=== PATIENT | female | born 1975 | race African-American/Black ===

== ENCOUNTER 2017-12-12 08:21 | Emergency (ER) | payer OTHER ==
[~2017-12-12] VITALS: Ht 160 cm; Wt 133.4 kg
[~2017-12-12 08:21] MED LIST: LABE100T5 PO
[2017-12-12 09:14] LABS: BASO # 0.1 x10^3/uL (0.0-0.2); BASO % 1 % (0-3); EOS # 0.2 x10^3/uL (0.0-0.7); EOS % 3 % (0-3); HEMATOCRIT 36.7 % (36.0-47.0); HEMOGLOBIN 12.2 g/dL (12.0-15.5); LYMPH # 1.9 x10^3/uL (1.0-4.8); LYMPH % 27 % (24-48); MEAN CORPUSCULAR HEMOGLOBIN 27 pg (25-35); MEAN CORPUSCULAR HGB CONC 33 g/dL (31-37); MEAN CORPUSCULAR VOLUME 81 fL (79-100); MONO # 0.4 x10^3/uL (0.0-1.1); MONO % 6 % (0-9); NEUT # 4.6 x10^3uL (1.8-7.7); NEUT % 64 % (31-73); PLATELET COUNT 371 x10^3/uL (140-400); RED BLOOD COUNT 4.53 x10^6/uL (3.50-5.40); WHITE BLOOD COUNT 7.2 x10^3/uL (4.0-11.0)
[2017-12-12] MEDS ORDERED: hydroCHLOROthiazide 12.5 MG CAPSULE PO ONE (09:15)
[2017-12-12] MEDS ORDERED: EPINEPHrine SYRINGE 1 MG/10 ML SYRINGE IM ONE (09:15)
[2017-12-12] MEDS ORDERED: diphenhydrAMINE 50 MG/ML VIAL IVP ONE (09:15)
[2017-12-12] MEDS ORDERED: FAMOTIDINE 20 MG TABLET. PO ONE (09:15)
[2017-12-12] MEDS ORDERED: EPINEPHrine 1 MG/ML VIAL IM ONE (09:15)
[2017-12-12 09:26] LABS: CALCIUM 9.5 mg/dL (8.5-10.1); CREATININE 1.1 mg/dL (0.6-1.0); GFR 65.3
--- NOTE | 2017-12-12 09:46 | EKG ---
[facility] [address] [place] [address] Test Date: 2017-12-12 Test Time: 09:11:19 Pat Name: JANESSA YOO Department: Room: Gender: F Infant Nanny: : 1975 Requested By: BRIT HAWLEY Order Number: [id number] Reading MD: Forest Sorenson MD Measurements Intervals [place] Rate: 86 P: 28 WI: 156 QRS: -6 QRSD: 84 T: 3 QT: 368 QTc: 443 Interpretive Statements SINUS RHYTHM Electronically Signed On 12-13-2017 15:24:38 CDT by Forest Sorenson MD
[2017-12-12] MEDS ORDERED: PRED50TA PO (10:49)
[2017-12-12] MEDS ORDERED: HYDR12.58 PO (10:49)
--- NOTE | 2017-12-12 10:49 | PHYS DOC ---
Past Medical History Past Medical History: Hypertension Past Surgical History: Tubal ligation, Other Additional Past Surgical Histo: Lap Band Alcohol Use: None Drug Use: None Adult General Chief Complaint Chief Complaint: FACE PROBLEM HPI HPI Patient is a 42 year old female who presents to the ER for evaluation of facial swelling. Patient reports onset last night with very mild swelling to right upper lip. Patient reports waking up this morning with diffuse swelling to upper lip. Patient denies any intraoral swelling, shortness of breath, nausea , vomiting, diarrhea. Patient denies any previous episodes. Patient reports that she's been taking lisinopril for multiple years her hypertension. Patient uses a combo pill with Hydrochlorothiazide. Review of Systems Review of Systems Constitutional: Denies fever or chills [] Eyes: Denies change in visual acuity, redness, or eye pain [] HENT: Denies nasal congestion or sore throat [] Respiratory: Denies cough or shortness of breath [] Cardiovascular: No chest pain, no lower extremity edema, no orthopnea GI: Denies abdominal pain, nausea, vomiting, bloody stools or diarrhea [] : Denies dysuria or hematuria [] Musculoskeletal: Denies back pain or joint pain [] Integument: Denies rash or skin lesions [] Neurologic: Denies headache, focal weakness or sensory changes [] Endocrine: Denies polyuria or polydipsia [] All other systems were reviewed and found to be within normal limits, except as documented in this note. Current Medications Current Medications Current Medications Medications (Trade) Dose Ordered Sig/Jamison Start Time Stop Time Status Last Admin Dose Admin Diphenhydramine HCl (Benadryl) 50 mg 1X ONCE 12/12/17 09:15 12/12/17 09:16 DC 12/12/17 09:24 50 MG Epinephrine HCl (Adrenalin) 0.3 mg 1X ONCE 12/12/17 09:15 12/12/17 09:16 DC 12/12/17 09:41 0.3 MG Epinephrine HCl (EPINEPHrine SYRINGE) 0.3 mg 1X ONCE 12/12/17 09:15 12/12/17 09:15 DC Famotidine (Pepcid) 20 mg 1X ONCE 12/12/17 09:15 12/12/17 09:16 DC 12/12/17 09:22 20 MG Hydrochlorothiazide (Microzide) 25 mg 1X ONCE 12/12/17 09:15 12/12/17 09:16 DC 12/12/17 09:42 25 MG Allergies Allergies Allergies Coded Allergies Type Severity Reaction Last Updated Verified No Known Drug Allergies 05/18/14 No Physical Exam Physical Exam Constitutional: Morbidly obese, in no acute distress, nontoxic appearing HENT: Normocephalic, atraumatic, mild swelling that appears isolated to upper lip. No trismus, submental and sublingual space is soft. No obvious swelling to tongue. Normal oropharynx. Mansion oral secretions. Clear speech and phonation. Eyes: PERRLA, EOMI, Neck: Normal range of motion, no tenderness, supple, no stridor. [] Cardiovascular:Heart rate regular rhythm, no murmur [] Lungs & Thorax: Bilateral breath sounds clear to auscultation [] Abdomen: Bowel sounds normal, soft, no tenderness, no masses, no pulsatile masses. [] Skin: Warm, dry, no erythema, no rash. [] Extremities: ROM intact, no edema. [] Neurologic: Alert and oriented X 3, no focal deficits noted. [] Psychologic: Affect normal, judgement normal, mood normal. [] Current Patient Data Vital Signs Vital Signs Date Time Temp Pulse Resp B/P (MAP) Pulse Ox O2 Delivery O2 Flow Rate FiO2 12/12/17 08:37 98.7 94 16 195/115 (141) 97 Room Air 98.7 Lab Values Laboratory Tests Test 12/12/17 09:05 White Blood Count 7.2 x10^3/uL (4.0-11.0) Red Blood Count 4.53 x10^6/uL (3.50-5.40) Hemoglobin 12.2 g/dL (12.0-15.5) Hematocrit 36.7 % (36.0-47.0) Mean Corpuscular Volume 81 fL (79-100) Mean Corpuscular Hemoglobin 27 pg (25-35) Mean Corpuscular Hemoglobin Concent 33 g/dL (31-37) Red Cell Distribution Width 16.0 % (11.5-14.5) H Platelet Count 371 x10^3/uL (140-400) Neutrophils (%) (Auto) 64 % (31-73) Lymphocytes (%) (Auto) 27 % (24-48) Monocytes (%) (Auto) 6 % (0-9) Eosinophils (%) (Auto) 3 % (0-3) Basophils (%) (Auto) 1 % (0-3) Neutrophils # (Auto) 4.6 x10^3uL (1.8-7.7) Lymphocytes # (Auto) 1.9 x10^3/uL (1.0-4.8) Monocytes # (Auto) 0.4 x10^3/uL (0.0-1.1) Eosinophils # (Auto) 0.2 x10^3/uL (0.0-0.7) Basophils # (Auto) 0.1 x10^3/uL (0.0-0.2) Sodium Level 140 mmol/L (136-145) Potassium Level 4.0 mmol/L (3.5-5.1) Chloride Level 104 mmol/L (98-107) Carbon Dioxide Level 27 mmol/L (21-32) Anion Gap 9 (6-14) Blood Urea Nitrogen 13 mg/dL (7-20) Creatinine 1.1 mg/dL (0.6-1.0) H Estimated GFR (Cockcroft-Gault) 65.3 Glucose Level 102 mg/dL (70-99) H Calcium Level 9.5 mg/dL (8.5-10.1) Troponin I Quantitative < 0.017 ng/mL (0.000-0.055) Laboratory Tests 12/12/17 09:05 Laboratory Tests 12/12/17 09:05 EKG EKG Normal sinus rhythm, heart rate 69, left bundle branch block, no significant ST segment changes. Radiology/Procedures Radiology/Procedures [] Course & Med Decision Making Course & Med Decision Making Pertinent Labs and Imaging studies reviewed. (See chart for details) []10:30 patient with spontaneous improvement of blood pressure with no intervention. Patient given her home hydrochlorothiazide dose. Patient given anaphylactic cocktail including IM epinephrine. Patient had no significant change of her symptoms but certainly no worsening of her symptoms. The patient remained stable will plan for discharge home with prednisone course. Advised patient that she'll need to stop the lisinopril. Will provide prescription for isolated hydrochlorothiazide tablets. Dragon Disclaimer Dragon Disclaimer This electronic medical record was generated, in whole or in part, using a voice recognition dictation system. Departure Departure Impression: Primary Impression: Angioedema Additional Impression: Hypertension Disposition: HOME, SELF-CARE Condition: STABLE Referrals: MASHA TY (PCP) Follow-up with the next 2 days Patient Instructions: Angioedema, [id number] Additional Instructions: Thank you for coming to [facility]. Please repeat the attached handouts. Please follow-up with your primary care physician. Return to the ER if your symptoms worsen or you have any other concerns. Do not take lisinopril. Please inform your primary care doctor of this ER visit regarding an angioedema episode related to lisinopril. Patient as prescribed. Please continue Benadryl 50 mg every 6-8 hours. Follow-up with your primary care physician in the next 1-2 days to discuss further blood pressure medications. Scripts Hydrochlorothiazide (HYDROCHLOROTHIAZIDE TABLET) 12.5 Mg Tablet 2 TAB PO DAILY, #60 TAB 0 Refills Prov: BRIT HAWLEY DO 12/12/17 Prednisone (PREDNISONE) 50 Mg Tablet 50 MG PO DAILY for 4 Days, #4 TAB Prov: BRIT HAWLEY DO 12/12/17 Problem Qualifiers BRIT HAWLEY DO Dec 12, 2017 10:49
[2017-12-12 12:21] VITALS: BP 125/64
== END 2017-12-12 12:58 | disposition home or self-care (01) ==
LOC: ER 08:21
DX: T78.3XXA Angioneurotic edema, initial encounter (principal); I10 Essential (primary) hypertension; E66.01 Morbid (severe) obesity due to excess calories; Z68.43 Body mass index [BMI] 50.0-59.9, adult; Z98.51 Tubal ligation status
CPT/HCPCS: 36415; 80048; 84484; 85025; 93005; 96372; 96374; 99285; J0171; J1200

== ENCOUNTER 2017-12-30 18:43 | Emergency (ER) | payer OTHER ==
[~2017-12-30] VITALS: Ht 162.6 cm; Wt 132.4 kg
[~2017-12-30 18:43] MED LIST changes: +HYDR12.58 PO; +PRED50TA PO
[2017-12-30 19:05] VITALS: BP 159/96
[2017-12-30] MEDS ORDERED: TRAM50TA PO (20:33)
--- NOTE | 2017-12-30 20:34 | PHYS DOC ---
Past Medical History Past Medical History: Hypertension Past Surgical History: Tubal ligation, Other Additional Past Surgical Histo: Lap Band Alcohol Use: None Drug Use: None Adult General Chief Complaint Chief Complaint: FOOT INJURY PAIN HPI HPI Patient is a 42 year old female with history of hypertension who presents today complaining of 9 out of 10 sharp pain to the left foot that began today after a box spring fell on her foot. Patient states most of the pain is on the lateral aspect of the foot. She has not taken anything for her pain. Review of Systems Review of Systems Constitutional: Denies fever or chills [] Musculoskeletal: Reports left lateral foot pain Integument: Denies rash or skin lesions [] Neurologic: Denies headache, focal weakness or sensory changes [] All other systems were reviewed and found to be within normal limits, except as documented in this note. Allergies Allergies Allergies Coded Allergies Type Severity Reaction Last Updated Verified No Known Drug Allergies 05/18/14 No Physical Exam Physical Exam Constitutional: Well developed, well nourished, no acute distress, non-toxic appearance. [] Abdomen: Bowel sounds normal, soft, no tenderness, no masses, no pulsatile masses. [] Skin: Warm, dry, no erythema, no rash. [] Back: No tenderness, no CVA tenderness. [] Extremities: Left foot with soft tissue swelling especially on the lateral aspect of the top of the foot. Tenderness on palpation of the left lateral foot. Full range of motion to the left foot and toes. +2 left pedal pulse. Cap refill less than 2 seconds left toes. Neurologic: Alert and oriented X 3, normal motor function, normal sensory function, no focal deficits noted. [] Psychologic: Affect normal, judgement normal, mood normal. [] Current Patient Data Vital Signs Vital Signs Date Time Temp Pulse Resp B/P (MAP) Pulse Ox O2 Delivery O2 Flow Rate FiO2 12/30/17 19:05 98.0 116 16 159/96 (117) 99 Room Air 98.0 EKG EKG [] Radiology/Procedures Radiology/Procedures [] Course & Med Decision Making Course & Med Decision Making Pertinent Labs and Imaging studies reviewed. (See chart for details) This is a 42-year-old female patient presenting to the ED with left foot pain after box spring fell on her foot. Left foot x-rays were noted for possible avulsion fracture of the second metatarsal. Patient will be placed in an orthopedic shoe. Ice elevation encouraged. Tramadol for pain. F/u with Ortho next week. Dragon Disclaimer Sheron Disclaimer This electronic medical record was generated, in whole or in part, using a voice recognition dictation system. Departure Departure Impression: Primary Impression: Avulsion fracture Disposition: HOME, SELF-CARE Condition: STABLE Referrals: MASHA TY (PCP) JERILYN BORGES MD follow up next week Patient Instructions: Avulsion Fracture Additional Instructions: You were seen for left foot pain. Please follow-up with the provided orthopedic doctor in the course of next week. Ice elevate the extremity. Take the prescribed medications as needed for pain. Scripts Tramadol Hcl (TRAMADOL HCL) 50 Mg Tablet 50 MG PO Q6HRS PRN for PAIN, #20 TAB Prov: WILLOW UREÑA APRN 12/30/17 WILLOW UREÑA APRN Dec 30, 2017 20:34
--- NOTE | 2017-12-30 20:41 | RAD ---
Examination: 3 views of the left foot HISTORY: History of injury COMPARISON: None available FINDINGS: The alignment of the tarsal bones, tarsometatarsal joints, tarsophalangeal joints, interphalangeal joints grossly appears unremarkable.There is no acute fracture identified. Mild soft tissue swelling identified lateral to the fifth metatarsal could be similar to soft tissue injury. IMPRESSION: 1. No acute osseous findings. 2. Mild soft tissue swelling identified lateral to the fifth metatarsal could be soft tissue injury. Electronically signed by: Ramu Lee MD (12/30/2017 8:38 PM) [facility]
== END 2017-12-30 20:40 | disposition home or self-care (01) ==
LOC: ER 18:43
DX: S92.812A Other fracture of left foot, initial encounter for closed fracture (principal); I10 Essential (primary) hypertension; W20.8XXA Other cause of strike by thrown, projected or falling object, initial encounter; Y93.89 Activity, other specified; Y92.89 Other specified places as the place of occurrence of the external cause; Y99.8 Other external cause status
CPT/HCPCS: 73630; 99284

== ENCOUNTER → 2018-02-21 | Outpatient (CLI) | payer OTHER ==
[~2018-02-21] MED LIST changes: +TRAM50TA PO
--- NOTE | 2018-02-21 16:53 | KCIC ---
MR of the left foot HISTORY: Left foot pain after injury in December. Pain laterally. TECHNIQUE: Routine multiplanar sequences are obtained. FINDINGS: Lisfranc ligament complex is intact. Tarsometatarsal joint alignment is intact. There is no evidence of acute tendon disruption. No significant tendon sheath fluid. No evidence of bone lesion or acute fracture. Minimal marrow edema at the distal cuboid. No significant joint effusion. No abnormal soft tissue fluid collection. Mild subcutaneous edema along the dorsum of the foot. IMPRESSION: Mild nonspecific marrow edema at the distal cuboid bone. Considerations include stress reaction or marrow contusion. Electronically signed by: Donta Dobson MD (02/21/2018 4:50 PM) [id number]
== END | disposition home or self-care (01) ==
LOC: KCIC MRI 15:06
PROVIDERS: ATTEND Orthopaedic Surgery
DX: R60.0 Localized edema (principal)
CPT/HCPCS: 73718